=== PATIENT | male | born 1945 | race Caucasian/White ===

== ENCOUNTER 2019-02-21 09:49 | Day surgery (SDC) | payer OTHER ==
[2019-02-21] MEDS ORDERED: NACL 0.9% 1000 ML 1,000 ML IV SCH (11:00)
--- NOTE | 2019-02-21 11:11 | Anesthesia Day of Surgery ---
Anesthesia Day of Surgery - Day of Surgery Patient Examined: Yes Patient H&P Reviewed: Yes Patient is NPO: Yes
--- NOTE | 2019-02-21 11:11 | Anesthesia Consultation ---
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 Patient reports that he follows with soldering machine operator regularly and his been stable on current regimen for many years. No symptoms of decompensation. Approx 4 met exercise tolerance.
[2019-02-21] MEDS ORDERED: WATER FOR IRRIG STERILE IR ONE (13:47)
[2019-02-21] MEDS ORDERED: WATER FOR IRRIG STERILE ONE (13:47)
[2019-02-21] MEDS ORDERED: DIPRIVAN 10 MG/ML IV ONE ×3 (13:55)
[2019-02-21] MEDS ORDERED: VERSED ONE (13:55)
--- NOTE | 2019-02-21 14:52 | Operative Report ---
Operative Report Operative Report: Date of procedure: 02/21/2019 Procedure: Colonoscopy with Multiple Snare polypectomies, Hot Biopsy Polypectomies, Ablation of colon polyp and Multiple submucosal injections. Attending physician: Johan Almonte M.D. Chair Finisher: Johan Almonte M.D. Indication: Patient is a 73-year-old male who presents for screening colonoscopy. Patient has a personal history of colon polyps. His last colonoscopy was about 15 years ago. This colonoscopy serves to evaluate patient so that treatment may be directed based on the findings. Consent: Informed consent was obtained after advising the patient and family regarding nature of this procedure, its indications, potential benefits as well as possible complications including but not limited to bleeding perforation and adverse reaction to medication, infection as well as other cardiopulmonary complications. An informed written and verbal consent was then obtained after due opportunity was provided for questions and answers. Monitoring: Patient was monitored continuously with pulse oximetry and electrocardiographic recordings as well as blood pressure recordings. Vital signs remained stable throughout this procedure with no untoward events. Preoperative assessment: Patient was assessed immediately prior to this procedure for capacity to tolerate monitored anesthesia care and moderate sedation as well as general anesthesia. Patient's ASA classification is 2, Mallampati class is 2, Hyomental distance is 3. Instrument: Olympus video colonoscope. Medications: Propofol given intravenously in divided doses. For details please refer to anesthesia records. Description of procedure: Patient was placed in the left lateral decubitus position after achieving sedation, a digital rectal examination was performed following which the colonoscope was introduced into the anal verge and advanced to the cecum which was identified by the cecal valve, the appendiceal orifice, as well as by the cecal strap and direct transillumination. The colonoscope was subsequently withdrawn with careful inspection of all mucosal surfaces. Patient tolerated this procedure well and was subsequently taken to the recovery room. The following findings were noted. Findings: Patient had become significant retained liquid stool in the cecum, ascending colon, transverse colon, descending colon and sigmoid colon. Also, patient had extensive diverticulosis of the sigmoid and descending colon and less so in the ascending colon. There were however no other mucosal abnormalities seen in the cecum, ascending colon, transverse colon and descending colon. In the sigmoid colon, patient had 5 polyps. 4 of the polyps measured between 1-1.5 cm. They were either flat or sessile in appearance. 4 polyps were injected with saline to elevate them and do were all removed by snare electrocautery and retrieved. One of the polyps were sessile. It me asured approximately 5 mm and was removed by hot biopsy polypectomy and retrieved. There was another polyp seen in the rectum which was sessile and measured approximately 1 cm. It was elevated with submucosal injection of saline and removed completely by snare electrocautery and retrieved.. Patient was noted to have internal hemorrhoids seen on the retroflexed view at the anal verge. Impression: Multiple colon polyps status post submucosal injection and snare polypectomy. Sigmoid colon polyp status post hot biopsy polypectomy Rectal polyp status post submucosal injection and snare polypectomy Extensive diverticulosis Moderately tortuous colon Internal hemorrhoids. Plan: Follow pathology report. High-fiber diet. Repeat colonoscopy in 1 year.
--- NOTE | 2019-02-21 14:53 | Discharge Summary ---
Short Stay Discharge Plan Activity: advance as tolerated Weight Bearing Status: Weight Bear as Tolerated Diet: regular Additional Instructions: Post Sedation D/C Instructions When you return home you may resume your regular diet unless otherwise directed. -Go directly home from the hospital and rest quietly. You may resume normal activities tomorrow. -Do NOT drive, return to work, operate any machinery or make any important personal or business decisions today. -Do NOT drink any alcohol or take nerve or sleeping drugs. They add to the effects of the medicine still present in your body. PLEASE START DAILY FIBER(FIBERCON,METAMUCIL, ETC.) AND DRINK PLENTY OF FLUIDS DAILY NO NSAIDS OR ASPIRIN FOR NEXT 2-[address] UP [address] ROLON IN THE NEXT 1-2 WEEKS FOR RESULTS OF TODAY'S VISIT AND BIOPSY RESULTS Follow up with: [facility] [Primary Care Provider] - 7 Days
[2019-02-21 15:40] VITALS: BP 127/72
== END 2019-02-21 09:50 | disposition home or self-care (01) ==
LOC: GIO 09:49
PROVIDERS: ATTEND Internal Medicine Gastroenterology
DX: Z12.11 Encounter for screening for malignant neoplasm of colon (principal); D12.8 Benign neoplasm of rectum; D12.5 Benign neoplasm of sigmoid colon; K64.8 Other hemorrhoids; K57.30 Diverticulosis of large intestine without perforation or abscess without bleeding; F17.210 Nicotine dependence, cigarettes, uncomplicated; I11.0 Hypertensive heart disease with heart failure; I50.9 Heart failure, unspecified; I25.10 Atherosclerotic heart disease of native coronary artery without angina pectoris; K21.9 Gastro-esophageal reflux disease without esophagitis; E11.9 Type 2 diabetes mellitus without complications; Z98.890 Other specified postprocedural states; Z79.899 Other long term (current) drug therapy; Z95.5 Presence of coronary angioplasty implant and graft
CPT/HCPCS: 45381; 45384; 45385; 82962; 88305; J2250; J2704; J7030